=== PATIENT | female | born 1930 | race Caucasian/White ===

== ENCOUNTER 2018-02-13 10:47 | Inpatient (IN) ==
--- NOTE | 2018-02-13 11:31 | Emergency Department Note ---
ED Disposition Clinical Impression: Generalized weakness, Hypokalemia, Dementia Disposition: Admitted as Observation Condition on Discharge: Good - Critical Care Critical Care Time: Yes Attestation: On , the high probability of a clinically significant, sudden or life threatening deterioration of the following system(s) required my full and direct attention, intervention and personal management. The time I documented below is in addition to time spent performing reported procedures but includes the following listed in this critical care notation. Total Critical Care Time: 35 Vital system(s) involved:: Metabolic Failure My critical care processes included: Assessment & monitoring of V/S, Initial and Re-exams, Data Review/Interpretation, Coordinating Care, Medication Orders and management, Documentation Comment: multiple d/w family;consultation Medical Decision Making - Medical Records Medical records reviewed: Yes: I reviewed the patient's medical records. - Dewayne Inquiry Pt receiving controlled substance: No Vital Signs: 02/13/18 11:28 02/13/18 11:41 Temperature 98.1 F Temperature Source Oral Pulse Rate [Left Radial] 70 Pulse Rate [Orthostatic Lying Right Radial] 72 Pulse Rate [Orthostatic Sitting Right Radial] 72 Respiratory Rate 18 Blood Pressure [Orthostatic Lying Right Arm] 174/77 Blood Pressure [Orthostatic Sitting] 154/74 Blood Pressure [Right Arm] 159/75 Blood Pressure Mean [Right Arm] 103 02 Sat by Pulse Oximetry 97 Oxygen Delivery Method Room Air - Lab Data Lab results reviewed: Yes: I reviewed the patient's lab results. Lab Results 02/13/18 11:40: WBC 8.1, RBC 3.92 L, Hgb 12.2, Hct 38.4, MCV 97.9, MCH 31.1, MCHC 31.8, RDW 14.6, Plt Count 186, MPV 10.2, Neut % (Auto) 80.3 H, Lymph % ( Auto) 11.8, Gem % (Auto) 7.4, Eos % (Auto) 0.2, Baso % (Auto) 0.2, Neut # (Auto ) 6.5, Lymph # (Auto) 1.0, Gem # (Auto) 0.6, Eos # (Auto) 0.0, Baso # (Auto) 0.0 02/13/18 11:40: Sodium 145, Potassium 2.7 L*, Chloride 106, Carbon Dioxide 30, Anion Gap 11.7, BUN 16, Creatinine 1.45 H, Estimated Creat Clear 21, Estimated GFR 34 L, Est GFR ( Amer) 41 L, Glucose 98, Calcium 9.1, Total Bilirubin 1.0, AST 41 H, ALT 42, Alkaline Phosphatase 65, Troponin I < 0.02, Total Protein 6.9, Albumin 3.3 L, Globulin 3.6 H, Albumin/Globulin Ratio 0.9 L 02/13/18 13:00: Lactic Acid 1.6 02/13/18 15:00: Urine Color Yellow, Urine Appearance Cloudy, Urine pH 6.0, Ur Specific [place] 1.025, Urine Protein Trace, Urine Glucose (UA) Negative, Urine Ketones Negative, Urine Blood Negative, Urine Nitrate Positive, Urine Bilirubin Negative, Urine Urobilinogen 0.2, Ur Leukocyte Esterase 1+ A Result diagrams: 02/13/18 11:40 02/13/18 11:40 Orders (Tests/Meds): ED MEDICATIONS Generic Name Dose Route Start Last Admin Trade Name Freq PRN Reason Stop Dose Admin Potassium Chloride/Water 100 mls @ 50 mls/hr 02/13/18 13:36 02/13/18 13:39 Potassium Chloride 20meq/100ml Ivpb IV 02/13/18 15:35 50 mls/hr ONCE ONE Administration Risperidone 0.25 mg 02/13/18 13:57 02/13/18 14:12 Risperdal 0.25mg Tablet PO 03/15/18 13:56 0.25 mg DAILY HELEN Administration Discontinued Medications Generic Name Dose Route Start Last Admin Trade Name Freq PRN Reason Stop Dose Admin Risperidone 0.25 mg 02/14/18 09:00 Risperdal 0.25mg Tablet PO 03/16/18 08:59 DAILY HELEN ORDERS Category Date Time Status Urinalysis and Microscopic Stat Lab 02/13/18 15:00 Results Urine Culture Stat Micro 02/13/18 15:00 Received - Radiology Data #1 Image(s): Chest, Pelvis, Foot/Toes Image Reviewed: Yes I reviewed the patient's radiology image Preliminary Findings: Normal/NAD (DJD neg acute; old CM, old h hernia, PM noted) - ECG Data Tracing #1 I reviewed this ECG and interpreted as documented below: paced at 70, RBBB, nonspecific t wave changes and motion artifact noted. K is 2.9 Normal Sinus Rhythm: Yes Ischemic changes: non-specific ST-T wave changes Conduction abnormalities present: RBBB ECG compared to prior tracings: there are no significant changes - Physician Consults Physician Consulted: Dr. Hannon Time: 13:25 Reason -: Admission Comment/Response: His staff will have him call back at 14:15. addendum: called back; ok to admit hypokalemia, and he will consult w/ case management - Reevaluation(s) Time: 13:40 (Pt with some redness to right great toe; family states "was blistering this morning"; no blisters or breakdown noted; foot warm but delayed CR noted; receiving slow infusion of potassium; neurologically unchanged. ) Fall HPI - General Stated Complaint: marck leg and feet burning with blisters Time Seen by Provider: 02/13/18 11:20 Mode of Arrival: Wheelchair Source of Information: Relative Limitations: dementia - History of Present Illness HPI Narrative: Daughter states witnessed fall yesterday, per the private caregiver, who reported to the daughter that the patient fell forward onto her legs, neg LOC, but not feeling well, unable to walk at all and usually walks with walker plus assistance. No chest pain or elder syncope; has chronic heel ulcers. Patient alert on arrival and cooperative, able to indicate whether anything hurts; tends to have dependent lividity to legs when sitting, per daughter, who as at the bedside. Recent change from Seroquel to Risperdal for worsening dementia; at times has been paranoid and is a little paranoid today, per daughter. MD complaint: fall Onset (ago): day(s) Fall from: walking Fall witnessed: yes, by bystander Place fall occurred: home Loss of consciousness: none Prolonged down time: no Symptoms prior to fall: none Context: history of frequent falls Location of injury - extremities: Right: lower leg, foot Severity: mild Associated symptoms (after fall): unable to walk - Related Data Allergies Allergy/AdvReac Type Severity Reaction Status Date / Time erythromycin base Allergy Unknown Verified 02/13/18 13:39 [ERYTHROMYCIN BASE] [facility] History I have reviewed the patient's past medical history: Yes Medical History: Reports:: Anxiety, Dementia, Ulcer ROS Obtained: Yes All systems reviewed & no additional complaints Physical Exam - General General appearance: alert (baseline dementia; alert; cooperative), in no apparent distress - Head Head exam: atraumatic, normocephalic, normal inspection - Eye Eye exam: Present: normal appearance, PERRL, EOMI - ENT ENT exam: Present: normal exam, normal oropharynx, mucous membranes moist, TM's normal bilaterally, normal external ear exam - Neck Neck exam: Present: normal inspection, full ROM, trachea midline. Absent: tenderness, meningismus, lymphadenopathy - Chest Chest inspection: Present: normal inspection, symmetric chest wall rise. Absent : tenderness - Respiratory Respiratory exam: Present: normal lung sounds bilaterally. Absent: respiratory distress - Cardiovascular Cardiovascular exam: Present: regular rate, normal rhythm. Absent: JVD - Abdominal Exam Abdominal exam: Present: soft, normal bowel sounds. Absent: distention, tenderness, guarding - Extremities Exam Extremities exam: Present: full ROM, normal capillary refill, other (dependent lividity; relieved with elevation of legs; daughter states hx same; has shallow ulcers to posterior heels with no drainage or warmth; neg Hugo's; tib/fib bilaterally are diffusely tender with no elder asymmetry, crepitus, deformities , or stepoffs noted. ). Absent: calf tenderness - Back Exam Back exam: Present: normal inspection, full ROM, other (pelvis stable to AP and lat palp). Absent: tenderness, muscle spasm, paraspinal tenderness, vertebral tenderness, rashes - Neurological Exam Neurological exam: Present: alert, CN II-XII intact, reflexes normal ( pleasantly demented; nonfocal exam; with leg pain have not asked pt to ambulate) . Absent: normal gait, motor sensory deficit - Psychiatric Psychiatric exam: Present: normal affect, normal mood. Absent: agitated - Skin Skin exam: Present: warm, dry, intact (also see leg exam) - Lymphatic Lymphatic Findings: no adenopathy (nonfocal neurological exam; speech clear and fluent; no tremor; banana carrier equal)
[2018-02-13 12:08] LABS: Basophils % 0.2 % (0.1-2.0); Eosinophils % 0.2 % (0.1-12.0); Hematocrit 38.4 % (37.0-47.0); Hemoglobin 12.2 g/dL (12.2-16.2); Lymphocytes % 11.8 K/mm3 (10-50); Mean Corpuscular HGB Conc 31.8 g/dL (31.8-35.4); Mean Corpuscular Hemoglobin 31.1 pg (27.0-31.2); Mean Corpuscular Volume 97.9 fl (81-99); Mean Platelet Volume 10.2 fl (7.4-10.4); Monocytes # 0.6 K/mm3 (0.1-1.0); Monocytes % 7.4 % (1.7-9.3); Neutrophils # 6.5 K/mm3 (1.8-7.8); Neutrophils % 80.3 % (37.0-80.0); Platelet Count 186 K/mm3 (142-424); Red Blood Count 3.92 M/mm3 (4.20-5.40); Red Cell Distribution Width 14.6 % (11.5-17.5); White Blood Count 8.1 K/mm3 (4.8-10.8)
[2018-02-13 12:25] LABS: Alanine Aminotransferase 42 U/L (12-78); Albumin Level 3.3 gm/dL (3.4-5.0); Albumin/Globulin Ratio 0.9 (1.1-1.8); Alkaline Phosphatase 65 U/L (46-116); Anion Gap 11.7 mEq/L (5-15); Aspartate Amino Transferase 41 U/L (15-37); Blood Urea Nitrogen 16 mg/dL (7-18); Calcium 9.1 mg/dL (8.5-10.1); Carbon Dioxide 30 mmol/L (21.0-32.0); Chloride 106 mmol/L (98-107); Globulin 3.6 gm/dl (1.3-3.2); Glucose 98 mg/dL (74-106); Sodium 145 mmol/L (136-145); Total Protein,Serum 6.9 gm/dL (6.4-8.2)
[2018-02-13 12:30] LABS: Potassium 2.7 mmoL/L (3.5-5.1)
[2018-02-13 15:03] LABS: Microscopic, Urine URINE MICROSCOPIC (MICROSCOPIC)
[2018-02-13 15:06] LABS: Appearance,Urine CLOUDY (Clear); Bilirubin,Urine Negative (Negative); Blood, Urine Negative (Negative); Color,Urine YELLOW (Yellow); Glucose,Urine (UA) Negative (Negative); Ketones,Urine Negative (Negative); Leukocyte Esterase,Urine 1+ (Negative); Protein,Urine TRACE (Negative); Specific Gravity, Urine 1.025 (1.005-1.030); Urobilinogen,Urine 0.2 EU/dl (0.2)
[2018-02-13 15:27] LABS: Bacteria,Urine 3+ /lpf; RBC,Urine Occasional #/hpf (0-3); Squamous Epithelial Cell,Urine TNTC #/hpf (0-5); WBC,Urine 20-50 #/hpf (0-3)
[2018-02-13 17:20] LABS: Potassium 2.9 mmoL/L (3.5-5.1)
--- NOTE | 2018-02-13 17:52 | History & Physical Report ---
*Admission Date: 02/13/18 *Chief complaint: Weakness and leg pain *History of present illness: 87-year-old white female with history of ischemic stroke and vascular dementia compromised with senile dementia and increasing weakness who has been essentially immobile over the past couple of weeks. I saw her in my office 2-3 weeks ago, increasing hallucinations, delusional behavior and weakness, we discussed hospice care, declined at that point as they are receiving home health services and we did change her Seroquel to risperidone. Over the past couple of days she has had increasing weakness, was unable to walk today and they brought her to the emergency department. Also they noted large water blisters on both feet today that had resolved by the time she got to the emergency department. In the emergency department she was found to be slightly combative, delirious with some delusional behavior. Significant dementia noted, hypokalemia was noted and she was admitted to hospital for replacement of hypokalemia and further diagnostic testing. [facility] History I have reviewed the patient's past medical history: Yes Medical History: Reports:: Anxiety, Dementia, Hypertension, Ulcer Denies:: Cancer, Diabetes Mellitus Type 1, Diabetes Mellitus Type 2, MRSA Other Medical History: Reports: Arthritis, Cataracts Other Surgeries: Yes: Hysterectomy-Total Amputation: No Fractures: No - *Social History Educational Level: Completed High School Smoking Status: Never smoker Alcohol Intake: never Occupational Status: retired Housing: house Household Members: children - Psychiatric History Expresses thoughts of harming self/others: None Suicide Plan Description: No Plan Pschychiatric History:: Reports:: Anxiety *Family Hx:: Cancer, Coronary Artery Disease, Diabetes, Hyperlipidemia, Hypertension, Stroke Review of Systems - Review of Systems Review of systems:: unable to obtain (Contrary to dementia) Meds Allergies Allergy/AdvReac Type Severity Reaction Status Date / Time erythromycin base Allergy Unknown Verified 02/13/18 13:39 [ERYTHROMYCIN BASE] Exam Vital signs and Labs for Last 24 Hours: Temp Pulse Resp BP Pulse Ox 98.1 F 71 20 188/85 97 02/13/18 16:21 02/13/18 16:21 02/13/18 16:21 02/13/18 16:21 02/13/18 11:41 Laboratory Results - last 24 hr 02/13/18 16:55: Potassium 2.9 L*, Magnesium 1.8 Narrative: In general patient is alert, responds to commands but is very belligerent and complains of pain with any movement of her legs. Most impressive exam feature is the purplish discoloration of her foot from just above the ankle down to her toes on the right side. It is extremely cool with no pulse in the foot. The left foot is warm and well-perfused - there is some redness to the distal toes and she complains of pain with movement. There are bilateral heel ulcers, stage I decubitus bilaterally. Lungs are clear in the anterior pink, heart rate regular, abdomen is soft, slight tenderness over the suprapubic area. H&P: Result - Labs Labs: [facility] 02/13/18 16:55 Potassium 2.9 L* Assessment and Plan (1) Arterial insufficiency of lower extremity Current visit: Yes Status: Acute Category: Medical Code(s): I73.9 - Peripheral vascular disease, unspecified Unfortunately this finding was not communicated to me in transfer from the ER. Unfortunately that makes it too late to do an arterial Doppler tonight. I will begin heparin drip, I have explained to the family the seriousness if this is indeed an arterial clot. We will minimize pain with morphine. Family does not wish consideration for catheterization of the lesion given her poor outcome with cardiac catheterization a year and a half ago with stroke. (2) Urinary tract infection Current visit: Yes Status: Acute Category: Medical Code(s): N39.0 - Urinary tract infection, site not specified (3) Acute delirium Current visit: Yes Status: Acute Category: Medical Code(s): R41.0 - Disorientation, unspecified Antibiotics not started in the ER for UTI, ceftriaxone will be started. Manage acute delirium with Haldol. Hopefully replacing potassium and treating UTI will also help. (4) Dementia Current visit: Yes Status: Acute Category: Medical Code(s): F03.90 - Unspecified dementia without behavioral disturbance (5) Generalized weakness Current visit: Yes Status: Acute Category: Medical Code(s): R53.1 - Weakness (6) Hypokalemia Current visit: Yes Status: Acute Category: Medical Code(s): E87.6 - Hypokalemia Place as noted, close follow-up. Heart rate slightly elevated. Cautious beta- blockade started.
[2018-02-14 07:21] LABS: Anion Gap 10.7 mEq/L (5-15)
[2018-02-14 07:25] LABS: Potassium 2.7 mmoL/L (3.5-5.1)
[2018-02-14 07:34] LABS: Basophils % 0.2 % (0.1-2.0); Eosinophils % 0.5 % (0.1-12.0); Hematocrit 34.9 % (37.0-47.0); Hemoglobin 11.2 g/dL (12.2-16.2); Lymphocytes # 0.9 K/mm3 (0.7-4.5); Lymphocytes % 10.9 K/mm3 (10-50); Mean Corpuscular HGB Conc 32.1 g/dL (31.8-35.4); Mean Corpuscular Hemoglobin 30.9 pg (27.0-31.2); Mean Corpuscular Volume 96.3 fl (81-99); Mean Platelet Volume 9.8 fl (7.4-10.4); Monocytes # 0.6 K/mm3 (0.1-1.0); Monocytes % 6.8 % (1.7-9.3); Neutrophils # 6.9 K/mm3 (1.8-7.8); Neutrophils % 81.7 % (37.0-80.0); Platelet Count 183 K/mm3 (142-424); Red Blood Count 3.62 M/mm3 (4.20-5.40); Red Cell Distribution Width 14.5 % (11.5-17.5); White Blood Count 8.4 K/mm3 (4.8-10.8)
--- NOTE | 2018-02-14 07:54 | Progress Note ---
Internal Medicine - PN: Subj *Date: 02/14/18 *Time: 07:52 Interval history: Nurses report the patient was pleasant overnight and cooperative, did swallow her oral medications. This morning she states she feels better and denies pain in her feet. Exam Vital signs and Labs for Last 24 Hours: Temp Pulse Resp BP Pulse Ox 98.6 F 71 15 145/74 97 02/14/18 04:19 02/14/18 04:19 02/14/18 04:19 02/14/18 04:19 02/14/18 04:19 Laboratory Results - last 24 hr 02/13/18 23:59: APTT 78.6 H* D 02/14/18 07:00: WBC 8.4, RBC 3.62 L, Hgb 11.2 L, Hct 34.9 L, MCV 96.3, MCH 30.9 , MCHC 32.1, RDW 14.5, Plt Count 183, MPV 9.8, Neut % (Auto) 81.7 H, Lymph % ( Auto) 10.9, [place] % (Auto) 6.8, Eos % (Auto) 0.5, Baso % (Auto) 0.2, Neut # (Auto ) 6.9, Lymph # (Auto) 0.9, [place] # (Auto) 0.6, Eos # (Auto) 0.0, Baso # (Auto) 0.0 02/14/18 07:00: Sodium 145, Potassium 2.7 L*, Chloride 106, Carbon Dioxide 31, Anion Gap 10.7, BUN 15, Creatinine 1.25 H, Estimated Creat Clear 26, Estimated GFR 41 L, Est GFR ( Amer) 49 L, Glucose 94 Narrative: Patient is pleasantly disoriented, but no she is in the hospital, is not combative or angry like she was last night. Anterior lung pink are clear, heart rate regular, abdomen soft. Her right foot looks vastly improved, color is much improved, perfusion is warm and there is capillary refill and 5 seconds. There is still an absent pulse in the foot but there seems to be much better either collateral or nonpulsatile circulation. Heel ulcers are in protective boots. Assessment and Plan (1) Arterial insufficiency of lower extremity Current visit: Yes Status: Acute Category: Medical Code(s): I73.9 - Peripheral vascular disease, unspecified (2) Urinary tract infection Current visit: Yes Status: Acute Category: Medical Code(s): N39.0 - Urinary tract infection, site not specified (3) Acute delirium Current visit: Yes Status: Acute Category: Medical Code(s): R41.0 - Disorientation, unspecified (4) Dementia Current visit: Yes Status: Acute Category: Medical Code(s): F03.90 - Unspecified dementia without behavioral disturbance (5) Generalized weakness Current visit: Yes Status: Acute Category: Medical Code(s): R53.1 - Weakness (6) Hypokalemia Current visit: Yes Status: Acute Category: Medical Code(s): E87.6 - Hypokalemia - Assessment and plan all Dx Assessment and Plan for all problems:: Overall patient is improving. Continue heparinization until we can get an arterial Doppler study. Continue her antibiotics for UTI, await culture result. Continue to replace potassium for her ongoing hypokalemia.
--- NOTE | 2018-02-14 12:24 | Pharmacy Consult Notes ---
[facility] Pharmacy VTE Monitoring - Patient Demographics Admission date: 02/13/18 Report Date: 02/14/18 Time: 12:23 Allergies/Adverse Reactions: Patient Allergies erythromycin base [ERYTHROMYCIN BASE] Allergy (Unknown, Verified 02/13/18 13:39) Height: 1.45 m Weight: 51.341 kg Patient Problems: Current Active Problems Generalized weakness (Acute) Hypokalemia (Acute) Dementia (Acute) Arterial insufficiency of lower extremity (Acute) Urinary tract infection (Acute) Acute delirium (Acute) - VTE Risk Labs: VTE Related Lab Results Hgb 11.2 g/dL (12.2-16.2) L 02/14/18 07:00 Hct 34.9 % (37.0-47.0) L 02/14/18 07:00 Plt Count 183 K/mm3 (142-424) 02/14/18 07:00 APTT 34.3 seconds (23.6-34.0) H 02/14/18 11:25 BUN 15 mg/dL (7-18) 02/14/18 07:00 Creatinine 1.25 mg/dL (0.55-1.02) H 02/14/18 07:00 Estimated Creat Clear 26 mL/min (0-300) 02/14/18 07:00 VTE Score: 3 VTE Risk Level: Low Risk - Prophylaxis VTE Prophylaxis Ordered?: Yes Types of VTE Prophylaxis: Pharmacological Pharmacologic Type: Heparin
--- NOTE | 2018-02-14 12:27 | Pharmacy Consult Notes ---
[facility] Pharmacy Heparin Dosing - Demographic Data Admission date:: 02/13/18 Date: 02/14/18 Time: 12:24 Allergies/Adverse Reactions: Allergies Allergy/AdvReac Type Severity Reaction Status Date / Time erythromycin base Allergy Unknown Verified 02/13/18 13:39 [ERYTHROMYCIN BASE] Height: 1.45 m Weight: 51.3 kg - Indication Medication therapy:: Heparin Current Indications:: POSSIBEL DVT/ARTERIAL INSUFFICIENCY Patient Problems: Current Active Problems Generalized weakness (Acute) Dementia (Chronic) Arterial insufficiency of lower extremity (Chronic) Urinary tract infection (Acute) Acute delirium (Acute) CVA?: No Bleeding problem?: No Kidney disease?: No PA?: No Desired PTT range:: 50-70 seconds - Labs Anticoagulation Lab Results:: 02/14/18 07:00 Hgb 11.2 L Hct 34.9 L Plt Count 183 - Monitoring Dose Monitor 1 Date: 02/13/18 Time: 18:15 PTT Result:: 26.8-BASELINE Infusion Rate:: 900 UNITS/HR=18 ML/HR Comment:: 5000 UNIT BOLUS GIVEN [id number] Dose Monitor 2 Date: 02/13/18 Time: 23:55 PTT Result:: 78.6 Infusion Rate:: 18 ML/HR Dose Monitor 3 Date: 02/14/18 Time: 07:00 PTT Result:: 143.1 Infusion Rate:: STOP DRIP FOR 3 HOURS, WILL ORDER A NEW PTT Dose Monitor 4 Date: 02/14/18 Time: 11:30 PTT Result:: 34.3 Infusion Rate:: 16 ML/HR Comment:: [id number] Dose Monitor 5 Date: 02/14/18 Time: 18:00 PTT Result:: 60.8 Infusion Rate:: 16 ML/HR Dose Monitor 6 Date: 02/15/18 Time: 01:00 PTT Result:: 71.6 Infusion Rate:: 16 ML/HR Dose Monitor 7 Date: 02/15/18 Time: 08:00 PTT Result:: 78.7 Infusion Rate:: 15 ML/HR Dose Monitor 8 Date: 02/15/18 Time: 15:00 PTT Result:: 53.5 Infusion Rate:: 15 ML/HR Dose Monitor 9 Date: 02/15/18 Time: 22:00 PTT Result:: 77.3 Infusion Rate:: 14 ML/HR Dose Monitor 10 Date: 02/16/18 Time: 06:00 PTT Result:: 68.1 Infusion Rate:: 14 ML/HR Dose Monitor 11 Date: 02/16/18 Time: 13:00 PTT Result:: 75.5 Infusion Rate:: 13 ML/HR Dose Monitor 12 Date: 02/16/18 Time: 21:00 PTT Result:: 56.6 Infusion Rate:: 13 ML/HR Dose Monitor 13 Date: 02/17/18 Time: 04:00 PTT Result:: 67.5 Infusion Rate:: 13 ML/HR - Core Measures Is INR > or = 2 at discharge?: No Most Recent Labs:: Laboratory Results - last 24 hr 02/13/18 23:59: APTT 78.6 H* D 02/14/18 07:00: WBC 8.4, RBC 3.62 L, Hgb 11.2 L, Hct 34.9 L, MCV 96.3, MCH 30.9 , MCHC 32.1, RDW 14.5, Plt Count 183, MPV 9.8, Neut % (Auto) 81.7 H, Lymph % ( Auto) 10.9, [place] % (Auto) 6.8, Eos % (Auto) 0.5, Baso % (Auto) 0.2, Neut # (Auto ) 6.9, Lymph # (Auto) 0.9, [place] # (Auto) 0.6, Eos # (Auto) 0.0, Baso # (Auto) 0.0 02/14/18 07:00: Sodium 145, Potassium 2.7 L*, Chloride 106, Carbon Dioxide 31, Anion Gap 10.7, BUN 15, Creatinine 1.25 H, Estimated Creat Clear 26, Estimated GFR 41 L, Est GFR ( Amer) 49 L, Glucose 94 02/14/18 07:00: APTT 143.1 H* D 02/14/18 11:25: APTT 34.3 H If INR was < than 2.0 why was therapy stopped?: NOT INDICATED, NOT A VTE Were Heparin and Warfarin started on the same day?: No If not, why?: NOT INDICATED, NOT A VTE Comments:: NOT A VTE
--- NOTE | 2018-02-15 07:49 | Progress Note ---
Internal Medicine - PN: Subj *Date: 02/15/18 *Time: 07:47 Interval history: Patient had significant sundowning through the night, on top of her baseline dementia. This morning she is pleasant and eating breakfast but is disoriented to time and place. No significant pain complaints. Exam Vital signs and Labs for Last 24 Hours: Temp Pulse Resp BP Pulse Ox 99.0 F 71 17 136/70 97 02/15/18 03:54 02/15/18 03:54 02/15/18 03:54 02/15/18 03:54 02/15/18 03:54 Laboratory Results - last 24 hr 02/14/18 07:00: APTT 143.1 H* D 02/14/18 11:25: APTT 34.3 H 02/14/18 17:55: APTT 60.8 H* D 02/15/18 01:05: APTT 71.6 H* D I & O for Last 24 hours: Intake & Output 02/12/18 02/13/18 02/14/18 02/15/18 11:59 11:59 11:59 11:59 Intake Total 1594 / 1594 Output Total 200 / 200 100 / 100 Balance -200 / 40 1494 / 1494 Weight 115 lb 2 oz Narrative: Pleasant and talkative and alert. No cranial nerve deficits. Lungs are clear, heart rate regular. Abdomen is soft, right foot is still markedly improved over the pulseless exam before heparinization. Is warm and well-perfused, however pulse is still absent. Nurses are able to Doppler a pulse on the lateral dorsalis pedis area. Assessment and Plan (1) Arterial insufficiency of lower extremity Current visit: Yes Status: Acute Category: Medical Code(s): I73.9 - Peripheral vascular disease, unspecified (2) Urinary tract infection Current visit: Yes Status: Acute Category: Medical Code(s): N39.0 - Urinary tract infection, site not specified (3) Acute delirium Current visit: Yes Status: Acute Category: Medical Code(s): R41.0 - Disorientation, unspecified (4) Dementia Current visit: Yes Status: Acute Category: Medical Code(s): F03.90 - Unspecified dementia without behavioral disturbance (5) Generalized weakness Current visit: Yes Status: Acute Category: Medical Code(s): R53.1 - Weakness (6) Hypokalemia Current visit: Yes Status: Acute Category: Medical Code(s): E87.6 - Hypokalemia - Assessment and plan all Dx Assessment and Plan for all problems:: Urine culture shows gram-negative rods, sensitivities pending. Mental status is really at baseline, I will increase her risperidone dose cautiously. Pulselessness of right foot/perfusion issues improved on heparin drip. Arterial Doppler tomorrow. She will need residential placement.
[2018-02-15 08:44] LABS: Basophils % 0.4 % (0.1-2.0); Eosinophils % 0.4 % (0.1-12.0); Hematocrit 37.6 % (37.0-47.0); Hemoglobin 11.9 g/dL (12.2-16.2); Lymphocytes % 14.2 K/mm3 (10-50); Mean Corpuscular HGB Conc 31.6 g/dL (31.8-35.4); Mean Corpuscular Hemoglobin 30.8 pg (27.0-31.2); Mean Corpuscular Volume 97.5 fl (81-99); Mean Platelet Volume 10.1 fl (7.4-10.4); Monocytes # 0.4 K/mm3 (0.1-1.0); Monocytes % 5.7 % (1.7-9.3); Neutrophils # 5.8 K/mm3 (1.8-7.8); Neutrophils % 79.3 % (37.0-80.0); Platelet Count 211 K/mm3 (142-424); Red Blood Count 3.85 M/mm3 (4.20-5.40); Red Cell Distribution Width 14.5 % (11.5-17.5); White Blood Count 7.3 K/mm3 (4.8-10.8)
[2018-02-15 08:53] LABS: Albumin Level 2.9 gm/dL (3.4-5.0); Albumin/Globulin Ratio 0.8 (1.1-1.8); Anion Gap 10.5 mEq/L (5-15); Bilirubin,Total 0.6 mg/dL (0.2-1.0); Calcium 8.7 mg/dL (8.5-10.1); Globulin 3.7 gm/dl (1.3-3.2); Potassium 3.5 mmoL/L (3.5-5.1); Total Protein,Serum 6.6 gm/dL (6.4-8.2)
[2018-02-16 06:35] LABS: Basophils % 0.5 % (0.1-2.0); Eosinophils % 0.7 % (0.1-12.0); Hematocrit 36.9 % (37.0-47.0); Hemoglobin 11.5 g/dL (12.2-16.2); Lymphocytes # 1.2 K/mm3 (0.7-4.5); Lymphocytes % 19.8 K/mm3 (10-50); Mean Corpuscular HGB Conc 31.2 g/dL (31.8-35.4); Mean Corpuscular Hemoglobin 30.4 pg (27.0-31.2); Mean Corpuscular Volume 97.5 fl (81-99); Mean Platelet Volume 9.8 fl (7.4-10.4); Monocytes # 0.4 K/mm3 (0.1-1.0); Monocytes % 6.6 % (1.7-9.3); Neutrophils # 4.3 K/mm3 (1.8-7.8); Neutrophils % 72.4 % (37.0-80.0); Platelet Count 216 K/mm3 (142-424); Red Blood Count 3.79 M/mm3 (4.20-5.40); Red Cell Distribution Width 14.4 % (11.5-17.5); White Blood Count 5.9 K/mm3 (4.8-10.8)
[2018-02-16 06:37] LABS: Anion Gap 12.3 mEq/L (5-15); Potassium 4.3 mmoL/L (3.5-5.1)
--- NOTE | 2018-02-16 08:24 | Progress Note ---
Internal Medicine - PN: Subj *Date: 02/16/18 *Time: 08:22 Interval history: Patient had a fairly restful night, remains confused and disoriented but not combative. Exam Vital signs and Labs for Last 24 Hours: Temp Pulse Resp BP Pulse Ox 97.8 F 70 18 149/60 98 02/16/18 07:51 02/16/18 07:51 02/16/18 07:51 02/16/18 07:51 02/16/18 07:51 Laboratory Results - last 24 hr 02/15/18 08:10: WBC 7.3, RBC 3.85 L, Hgb 11.9 L, Hct 37.6, MCV 97.5, MCH 30.8, MCHC 31.6 L, RDW 14.5, Plt Count 211, MPV 10.1, Neut % (Auto) 79.3, Lymph % ( Auto) 14.2, King % (Auto) 5.7, Eos % (Auto) 0.4, Baso % (Auto) 0.4, Neut # (Auto ) 5.8, Lymph # (Auto) 1.0, King # (Auto) 0.4, Eos # (Auto) 0.0, Baso # (Auto) 0.0 02/15/18 08:10: Sodium 144, Potassium 3.5 D, Chloride 107, Carbon Dioxide 30, Anion Gap 10.5, BUN 14, Creatinine 1.35 H, Estimated Creat Clear 24, Estimated GFR 37 L, Est GFR ( Amer) 45 L, Glucose 115 H, Calcium 8.7, Total Bilirubin 0.6, AST 36, ALT 49, Alkaline Phosphatase 68, Total Protein 6.6, Albumin 2.9 L, Globulin 3.7 H, Albumin/Globulin Ratio 0.8 L 02/15/18 08:10: APTT 78.7 H* 02/15/18 15:10: APTT 53.5 H* D 02/15/18 22:10: APTT 77.3 H* D 02/16/18 06:13: APTT 68.1 H* D 02/16/18 06:13: WBC 5.9, RBC 3.79 L, Hgb 11.5 L, Hct 36.9 L, MCV 97.5, MCH 30.4 , MCHC 31.2 L, RDW 14.4, Plt Count 216, MPV 9.8, Neut % (Auto) 72.4, Lymph % ( Auto) 19.8, King % (Auto) 6.6, Eos % (Auto) 0.7, Baso % (Auto) 0.5, Neut # (Auto ) 4.3, Lymph # (Auto) 1.2, King # (Auto) 0.4, Eos # (Auto) 0.0, Baso # (Auto) 0.0 02/16/18 06:13: Sodium 145, Potassium 4.3 D, Chloride 108 H, Carbon Dioxide 29 , Anion Gap 12.3, BUN 14, Creatinine 1.14 H, Estimated Creat Clear 29, Estimated GFR 45 L, Est GFR ( Amer) 55 L D, Glucose 89 D I & O for Last 24 hours: Intake & Output 02/13/18 02/14/18 02/15/18 02/16/18 11:59 11:59 11:59 11:59 Intake Total 2134 / 2134 1218 / 1218 Output Total 200 / 200 100 / 100 Balance -200 / 40 2033 / 2033 1218 / 1218 Weight 113 lb 1.554 oz 116 lb 1 oz Narrative: Patient is breathing easily. Heart rate regular, abdomen soft. Right foot is improved vis--vis perfusion, pulse is still nonpalpable but dopplerable. Color is improved. Abdomen soft soft with no suprapubic tenderness. Assessment and Plan (1) Arterial insufficiency of lower extremity Current visit: Yes Status: Acute Category: Medical Code(s): I73.9 - Peripheral vascular disease, unspecified (2) Urinary tract infection Current visit: Yes Status: Acute Category: Medical Code(s): N39.0 - Urinary tract infection, site not specified (3) Acute delirium Current visit: Yes Status: Acute Category: Medical Code(s): R41.0 - Disorientation, unspecified (4) Dementia Current visit: Yes Status: Acute Category: Medical Code(s): F03.90 - Unspecified dementia without behavioral disturbance (5) Generalized weakness Current visit: Yes Status: Acute Category: Medical Code(s): R53.1 - Weakness (6) Hypokalemia Current visit: Yes Status: Acute Category: Medical Code(s): E87.6 - Hypokalemia - Assessment and plan all Dx Assessment and Plan for all problems:: E. coli in urine sensitive to ceftriaxone. She will need 5 more days of this intravenously. Perfusion issues/possible arterial clot and foot. Improved after heparinization. Check arterial Doppler. If any type of flow whatsoever will manager disaster recovery to p.o. Plavix. PT consultation for decubitus ulcer for heels. If they have a reasonable wound plan will discharge to intermediate tomorrow for ongoing skilled care.
--- NOTE | 2018-02-17 07:23 | Discharge Summary ---
General - General Admission date: 02/13/18 Discharge date: 02/17/18 HPI HPI: 87-year-old white female with history of ischemic stroke and vascular dementia compromised with senile dementia and increasing weakness who has been essentially immobile over the past couple of weeks. I saw her in my office 2-3 weeks ago, increasing hallucinations, delusional behavior and weakness, we discussed hospice care, declined at that point as they are receiving home health services and we did change her Seroquel to risperidone. Over the past couple of days she has had increasing weakness, was unable to walk today and they brought her to the emergency department. Also they noted large water blisters on both feet today that had resolved by the time she got to the emergency department. In the emergency department she was found to be slightly combative, delirious with some delusional behavior. Significant dementia noted, hypokalemia was noted and she was admitted to hospital for replacement of hypokalemia and further diagnostic testing. Hospital Course Hospital Course: Patient was admitted to hospital. On my initial rounds she was noted pulselessness, cold right foot and significant pain in the right foot consistent with arterial insufficiency. Heparinization was begun and over the next 12 hours this resulted in marked improvement in the warmth and perfusion of the right foot. Found to have a urinary tract infection, ultimately culture showed E. coli, sensitive to ceftriaxone intravenously and this was continued. Patient will need 6 more days of intravenous ceftriaxone at the group home. Physical therapy evaluated her, felt she would benefit from wound care for her heels, please see physical therapy note for details of the recommendations. They also thought that she would need physical and occupational therapy for strengthening. This morning the patient is doing well. Her laboratory studies show no essentially normal blood counts, creatinine has improved back to her baseline and she is no longer hypokalemic. Foot continues to look better with good warm temperatures on both feet, still with very diminished pulses, especially on the right foot. Heel ulcers are noted, but not infected. Plan will be to transfer to group home today, 6 more days of intravenous ceftriaxone. We will change her anticoagulation over to Plavix 75 mg daily. She will need PT/OT/speech therapy evaluation. She has been on lower dose Risperdal here at the hospital which has helped her . This will continue. This is currently at the lowest effective dose of antipsychotic. We will follow her up at the group home. Objective Vital signs: Temp Pulse Resp BP Pulse Ox 97.6 F 80 18 136/86 93 L 02/17/18 03:55 02/17/18 03:55 02/17/18 03:55 02/17/18 03:55 02/17/18 03:55 Narrative: Patient is alert, demented, exhibits disorientation to place and time, poor memory of recent events. Lungs are clear, heart rate regular, abdomen soft, please see above for description of her feet. Moves arms and legs well, pleasant and talkative. Results Labs on day of discharge: Labs from last 24 hours 02/17/18 02/16/18 02/16/18 04:05 21:05 13:10 APTT 67.5 H* D 56.6 H* D 75.5 H* D DS: Diagnosis - Discharge Diagnosis (1) Arterial insufficiency of lower extremity Status: Chronic (2) Urinary tract infection Status: Acute (3) Acute delirium Status: Acute (4) Dementia Status: Chronic (5) Generalized weakness Status: Acute (6) Hypokalemia Status: Resolved Discharge Plan - Patient Discharge Instructions ACTIVITY: Continue current activity DIET: continue same diet - Follow up Plan Follow up with: Harry Hannon MD [Family Provider] - Disposition: Xfer SNF Home Medications: Home Medications Medication Instructions Recorded Confirmed Type Amiodarone HCl [Amiodarone 200mg 200 mg PO DAILY 02/13/18 02/13/18 History Tab] Aspirin [Aspirin 81mg EC Tab] 81 mg PO DAILY 02/13/18 02/13/18 History Biotin 5,000 mcg PO DAILY 02/13/18 02/13/18 History Cholecalciferol (Vitamin D3) 1,000 unit PO DAILY 02/13/18 02/13/18 History [Vitamin D3 1,000 Unit Cap] Citalopram Hydrobromide [Celexa] 20 mg PO DAILY 02/13/18 02/13/18 History Cyanocobalamin (Vitamin B-12) 2,500 mcg PO DAILY 02/13/18 02/13/18 History [Vitamin B12 2.5mg Tab] Furosemide [Furosemide 20mg Tab] 20 mg PO DAILY 02/13/18 02/13/18 History Melatonin/Pyridoxine HCl (B6) 1 each PO HS 02/13/18 02/13/18 History [Melatonin 5 mg Tablet] Metoprolol Tartrate 100 mg PO BID 02/13/18 02/13/18 History Sennosides [Senna Laxative] 8.6 mg PO BID 02/13/18 02/13/18 History Ticagrelor [Brilinta 90mg Tablet] 90 mg PO BID 02/13/18 02/13/18 History risperiDONE [Risperdal 0.5mg 0.5 mg PO HS 02/13/18 02/13/18 History tablet] Potassium Chloride [Klor-con 20 20 meq PO BID 02/14/18 02/14/18 History mEq tablet] Prescriptions/Medication Reconciliation: New Clopidogrel Bisulfate [Plavix 75mg Tab] 75 mg PO DAILY 30 Days #30 tablet Continue Aspirin [Aspirin 81mg EC Tab] 81 mg PO DAILY Amiodarone HCl [Amiodarone 200mg Tab] 200 mg PO DAILY Sennosides [Senna Laxative] 8.6 mg PO BID Metoprolol Tartrate 100 mg PO BID Melatonin/Pyridoxine HCl (B6) [Melatonin 5 mg Tablet] 1 each PO HS Cyanocobalamin (Vitamin B-12) [Vitamin B12 2.5mg Tab] 2,500 mcg PO DAILY Citalopram Hydrobromide [Celexa] 20 mg PO DAILY Biotin 5,000 mcg PO DAILY Cholecalciferol (Vitamin D3) [Vitamin D3 1,000 Unit Cap] 1,000 unit PO DAILY Changed risperiDONE [Risperdal 0.5mg tablet] 0.5 mg PO BID #60 tablet Discontinued Furosemide [Furosemide 20mg Tab] 20 mg PO DAILY Ticagrelor [Brilinta 90mg Tablet] 90 mg PO BID Potassium Chloride [Klor-con 20 mEq tablet] 20 meq PO BID
[2018-02-17 07:26] VITALS: BP 156/73
--- NOTE | 2018-02-17 07:48 | Progress Note ---
Internal Medicine - PN: Subj *Date: 02/17/18 *Time: 07:47 Exam Vital signs and Labs for Last 24 Hours: Temp Pulse Resp BP Pulse Ox 98.2 F 70 18 156/73 97 02/17/18 07:25 02/17/18 07:25 02/17/18 07:25 02/17/18 07:25 02/17/18 07:25 Laboratory Results - last 24 hr 02/16/18 13:10: APTT 75.5 H* D 02/16/18 21:05: APTT 56.6 H* D 02/17/18 04:05: APTT 67.5 H* D I & O for Last 24 hours: Intake & Output 02/14/18 02/15/18 02/16/18 02/17/18 23:59 23:59 23:59 23:59 Intake Total 1407 / 1407 1447 / 1447 1212 / 1212 240 / 240 Output Total 300 / 300 Balance 1107 / 1107 1447 / 1447 1212 / 1212 240 / 240 Weight 51.965 kg 51.3 kg 56.645 kg 51.908 kg Assessment and Plan (1) Arterial insufficiency of lower extremity Current visit: Yes Status: Chronic Category: Medical Code(s): I73.9 - Peripheral vascular disease, unspecified (2) Urinary tract infection Current visit: Yes Status: Acute Category: Medical Code(s): N39.0 - Urinary tract infection, site not specified (3) Acute delirium Current visit: Yes Status: Acute Category: Medical Code(s): R41.0 - Disorientation, unspecified (4) Dementia Current visit: Yes Status: Chronic Category: Medical Code(s): F03.90 - Unspecified dementia without behavioral disturbance (5) Generalized weakness Current visit: Yes Status: Acute Category: Medical Code(s): R53.1 - Weakness (6) Hypokalemia Current visit: Yes Status: Resolved Category: Medical Code(s): E87.6 - Hypokalemia The patient's infection will respond to the chosen ABx?: Yes Is the patient receiving the right drug, dose, and route?: Yes Could a more targeted ABx be ordered?: No (GOING TO CT TODAY)
== END 2018-02-17 13:14 ==
LOC: ER 10:47 → 2ND 10:47 → OBSVTOIN 16:41 → INTOOBSV 16:41 → 2ND 16:42
PROVIDERS: ADMIT Internal Medicine Adolescent Medicine; ATTEND Internal Medicine Adolescent Medicine